=== PATIENT | female | born 1965 | race Hispanic/Latino ===

== ENCOUNTER → 2023-12-11 | Day surgery (SDC) | payer OTHER ==
[~2023-12-11] MED LIST: AMLODIPINE BESYL5 MG PO; FENTANYL CITRATE/PF 100MCG/2 ML INJ ONE; HYOSCYAMINE SULFATE 0.5 MG/ML INJ ONE; KETAMINE HCL INJ 50 MG/ML 10 ML VIAL ONE; LIDOCAINE HCL 2% LOCAL INJ 5 ML SDV VIAL INJ ONE; LIPITOR10 MG PO; PANTOPRAZOLE SO40 MG PO; PHENTERMINE HCL15 MG PO; PROPOFOL IV EMULSION 10 MG/ML 20 ML VIAL ONE; PROPOFOL IV EMULSION 10 MG/ML 50 ML VIAL IV ONE; ZESTRIL10 MG PO
[2023-12-11] MEDS: LACTATED RINGER'S 1,000 ML ONE (12:04)
[2023-12-11 14:25] VITALS: BP 140/73; PULSE 83; RESP 16; O2SAT 100
== END | disposition home or self-care (01) ==
LOC: OR 10:24
PROVIDERS: ATTEND Internal Medicine Gastroenterology
DX: K21.00 Gastro-esophageal reflux disease with esophagitis, without bleeding (principal); K22.2 Esophageal obstruction; K44.9 Diaphragmatic hernia without obstruction or gangrene; D13.0 Benign neoplasm of esophagus; K29.50 Unspecified chronic gastritis without bleeding; K29.80 Duodenitis without bleeding; T47.1X5A Adverse effect of other antacids and anti-gastric-secretion drugs, initial encounter; K31.89 Other diseases of stomach and duodenum; R13.10 Dysphagia, unspecified; K31.7 Polyp of stomach and duodenum; K63.5 Polyp of colon; K57.30 Diverticulosis of large intestine without perforation or abscess without bleeding; K59.00 Constipation, unspecified; I10 Essential (primary) hypertension; Z01.810 Encounter for preprocedural cardiovascular examination; Z79.899 Other long term (current) drug therapy
CPT/HCPCS: 43239; 43251; 43450; 45385; 93005; J2470; J3010; J7121; 45378; J1980; J2003